=== PATIENT | male | born 1995 | race African-American/Black ===

== ENCOUNTER 2023-07-20 02:45 | Emergency (ER) | payer SELFPAY ==
[~2023-07-20] VITALS: Ht 167.6 cm; Wt 71.0 kg
[2023-07-20 04:05] VITALS: BP 127/86; TEMP 98.6; O2SAT 100
[2023-07-20 04:06] VITALS: PULSE 82; RESP 18
== END 2023-07-20 05:44 | disposition left against medical advice (07) ==
LOC: ER 02:45
DX: M79.671 Pain in right foot (principal); Z53.21 Procedure and treatment not carried out due to patient leaving prior to being seen by health care provider